=== PATIENT | female | born 2000 | race Caucasian/White ===

== ENCOUNTER 2022-11-20 14:50 | Emergency (ER) | payer SELFPAY ==
[~2022-11-20] VITALS: Ht 167.6 cm; Wt 79.0 kg
[2022-11-20 15:08] VITALS: O2SAT 100
[2022-11-20 15:49] LABS: CLARITY URINE CLEAR (CLEAR); COLOR URINE YELLOW (YELLOW); KETONES URINE NEGATIVE (NEGATIVE); LEUKOCYTE ESTERASE URINE NEGATIVE (NEGATIVE); NITRITE URINE NEGATIVE (NEGATIVE); OCCULT BLOOD URINE NEGATIVE (NEGATIVE); PROTEIN URINE NEGATIVE (NEGATIVE); SPECIFIC GRAVITY URINE 1.005 (1.005-1.030); UROBILINOGEN URINE 0.2 E.U./dL (0.2-1.0)
[2022-11-20] MEDS ORDERED: ACET-2708 MT (18:28)
[2022-11-20] MEDS ORDERED: METO-293 MT (18:28)
[2022-11-20] MEDS ORDERED: ACETAMINOPHEN 325MG TABLET PO NR (18:30)
[2022-11-20] MEDS ORDERED: METOCLOPRAMIDE HCL 10MG TABLET PO NR (18:32)
[2022-11-20 19:13] VITALS: BP 130/80; PULSE 68; RESP 16; TEMP 98.5
== END 2022-11-20 19:13 | disposition home or self-care (01) ==
LOC: ER 14:50
DX: S06.0XAA Concussion with loss of consciousness status unknown, initial encounter (principal); W18.30XA Fall on same level, unspecified, initial encounter; Y93.89 Activity, other specified; Y92.89 Other specified places as the place of occurrence of the external cause; Y99.8 Other external cause status
CPT/HCPCS: 81003; 81025; 99283